=== PATIENT | male | born 1980 | race Caucasian/White ===

== ENCOUNTER 2017-07-05 18:21 | Emergency (ER) | payer BC ==
[~2017-07-05] VITALS: Ht 182.9 cm; Wt 95.8 kg
[~2017-07-05 18:21] MED LIST: ADVIN25050; ALBUAER2 INH; OXYC1TAB3 PO
[2017-07-05 18:29] VITALS: TEMP 36.8; Ht 182.9 cm; Wt 95.8 kg
--- NOTE | 2017-07-05 20:06 | DIAGNOSTIC IMAGING REPORT ---
LEFT ANKLE MIN 3 VIEWS ROUTINE CLINICAL HISTORY: fall; L medial ankle pain trauma. Pain. COMPARISON: None. DISCUSSION: The bones and joint spaces appear intact. There is no evidence of fracture, dislocation or bony disease. There is no evidence for soft tissue swelling. IMPRESSION: Negative study. The above report was generated using voice recognition software. It may contain grammatical, syntax or spelling errors. Electronically signed by: Sravan Nagel M.D. 07/05/2017 8:05 PM Dictated Date/Time: 07/05/2017 8:05 PM
--- NOTE | 2017-07-05 20:07 | DIAGNOSTIC IMAGING REPORT ---
LEFT KNEE 3 VIEWS CLINICAL HISTORY: fall; L medial knee pain trauma. Pain. COMPARISON: None. DISCUSSION: The bones and joint spaces appear intact. There is no evidence of fracture, dislocation or bony disease. There is no evidence for soft tissue swelling. IMPRESSION: Negative study. The above report was generated using voice recognition software. It may contain grammatical, syntax or spelling errors. Electronically signed by: Sravan Nagel M.D. 07/05/2017 8:06 PM Dictated Date/Time: 07/05/2017 8:05 PM
--- NOTE | 2017-07-05 20:08 | DIAGNOSTIC IMAGING REPORT ---
LEFT RIBS UNILATERAL WITH PA CHEST CLINICAL HISTORY: fall; L lateral rib pain trauma COMPARISON STUDY: None FINDINGS: Negative chest. Negative left ribs. IMPRESSION: Negative study The above report was generated using voice recognition software. It may contain grammatical, syntax or spelling errors. Electronically signed by: Sravan Nagel M.D. 07/05/2017 8:07 PM Dictated Date/Time: 07/05/2017 8:06 PM
[2017-07-05] MEDS ORDERED: NORCO 5/325MG HOME PACK PO ONE (20:30)
[2017-07-05 20:46] VITALS: BP 143/84; PULSE 76; O2SAT 98
--- NOTE | 2017-07-06 01:23 | EMERGENCY ROOM VISIT NOTE ---
ED Visit Note First contact with patient: 18:46 Chief Complaint: Fall. History of Present Illness: Mr. Abad is a 37-year-old white male who ambulates into the ED accompanied by his with complaints of left sided rib pain, left anterior knee pain and left ankle pain. Patient reports yesterday morning approximately 28 hours ago he was hiking and slipped and fell and slid 6 feet down a hill in the prone position leaning with his head/face. He reports before the fall there was no lightheadedness or dizziness, the time of the fall he did not strike his head, at the end of the fall he did not have a loss of consciousness and since the fall he reports he is not having any signs of head injury. He goes on to report during the fall he believes he struck his left ribs and knee on a rock and somehow twisted his left ankle. Since the fall he reports he has been having gradually increasing pain and has noted swelling of the anterior left knee and medial left ankle. Currently he is complaining of sharp left-sided chest pain in the areas of the anterior lateral aspect of ribs 5 and 6. He rates his discomfort 6/10. His pain worsens with palpation, deep inspiration and abduction and extension of the shoulder. He has not identified any alleviating factors related to the pain. He reports he has taken ibuprofen for pain without relief of his discomfort. Additionally he is complaining of anterior left knee pain over the patella and over the medial joint line. He reports the patellar pain is much more intense than the joint line pain. He describes this pain as a sharp sensation. He rates his discomfort 6/10. His pain is nonradiating. His pain worsens with palpation of the joint line and patella. Additionally he notes increasing pain with ambulation. Lastly he complains of medial left ankle pain over the ligamentous structures just inferior to the medial malleolus. He rates this discomfort 6/10. His pain worsens with inversion and palpation. Additionally pain increases with ambulation. His pain is nonradiating. He denies any back pain, shortness of breath, wheezing, difficulty breathing, abdominal pain, nausea, vomiting, diarrhea, constipation, rectal bleeding, black /tarry stools, urinary symptoms, hematuria, bowel and bladder dysfunction, lower extremity weakness/numbness/tingling. Review of Systems: As noted above in history of present illness. 8 body systems were reviewed and found to be negative as noted above. Past Medical History: Asthma, bronchitis, pneumonia, status post right hand surgery, wisdom teeth extraction and lithotripsy. Current Medications: Advair, albuterol. Allergies to Medications: Codeine, red dye, cefazolin. Social History: Patient is currently employed; he feels safe in his home environment; he denies tobacco use and admits to alcohol use. Physical Examination: Vital Signs: Date Time Temp Pulse Resp B/P (MAP) Pulse Ox O2 Delivery O2 Flow Rate FiO2 07/05/17 20:46 76 18 143/84 98 07/05/17 18:29 36.8 72 18 139/94 99 Room Air GENERAL: 37-year-old male in mild to moderate distress due to pain, nontoxic- appearing, afebrile and hemodynamically stable. NEUROLOGICAL: Awake, alert and oriented to person, place and time. Answering questions appropriately and following commands. Limped gait. Good hand eye coordination. No focal motor or sensory deficits. SKIN: Warm, dry and pink. Multiple soft tissue abrasions with prominence over the anterior aspect of the left lower leg including the thigh, knee and lower leg. All these wounds are clean dry and intact without signs of infection. BACK: No tenderness over the bony spine. No CVA tenderness. THORAX: Lungs sounds are clear to auscultation and equal bilaterally with symmetrical chest wall. No wheezing, rales or rhonchi. Mild tenderness over the anterior lateral aspects of read 5 and 6 without bony deformity, bony crepitus or subcutaneous air. HEART: Regular rate and rhythm. No gallops, rubs or murmurs are appreciated. ABDOMEN: Flat, soft and nontender. Positive bowel sounds in all quadrants. No guarding, rigidity or organomegaly. LEFT LOWER EXTREMITY: No gross bony deformity. No shortening or malrotation. No tenderness over the hip, foot or toes. Mild tenderness over the anterior and medial aspect of the knee. I do not appreciate any bony deformity or crepitus. There is no swelling and only mild joint line tenderness over the medial aspect of the knee. Over the patella there is moderate tenderness and early contusion as well as superficial abrasions over the anterior patella. Was not able to appreciate any ligamentous laxity at the level of the knee. Ki's test was negative. Decreased range of motion of the knee due to swelling to only about 90 of flexion and he was able to reach full extension and hyperextension. Patient also has tenderness over the ligamentous structures inferior to the medial malleolus with mild swelling. I do not appreciate any bony deformity or crepitus. No laxity of the ligamentous tissues. Full range of motion in plantar flexion and dorsiflexion and inversion and eversion of the ankle and flexion and extension of all toes. Throughout the foot the skin was warm and pink and capillary refill is brisk. He was able to distinguish light sensations through all dermatomes. ED Course: Patient is assessed as noted above. Patient's medication list was reviewed. Left Ankle X-Rays: Were read by myself and the radiologist and showing no acute fractures or dislocations. Left Knee X-Rays: Were read by myself and the radiologist showing no acute fractures or dislocations. No joint effusion. PA Chest and Left-Sided Rib Series: Were read by myself and shows no acute infiltrates, effusions or pneumothorax. Normal heart silhouette and bony anatomy. Patient was offered pain medication and refused. Patient is given ice for ankle pain and swelling. Patient's knee was wrapped in an Samuel bandage for support and he was placed in a gel splint for his ankle pain and swelling. He did report he had crutches at home for use. Patient was educated about today's findings and instructed on his treatment plan ; he verbalized understanding and agreement with this plan. Clinical Impression: Left rib pain. Left knee contusion. Left ankle sprain. Status post fall. Disposition: Patient discharged home in stable condition accompanied by his ; prior to departure he was reassessed and subjectively reported he was feeling slightly better. Plan: Comfort measures including rest, ice, splint, Samuel bandage and nonweightbearing crutches use were discussed with the patient. Additionally patient was placed on a sliding pain medication scale of ibuprofen , acetaminophen and [place]; his name was checked and is [place] [facility] database and no red flags were noted. Additionally he was educated on proper precautions for narcotics use. Wound care and signs of infection were discussed with the patient. Patient was encouraged to follow-up with primary care provider for any signs of infection of the soft tissue injuries. Patient was encouraged to follow-up with orthopedics for his ankle and knee pain. A she was encouraged return to the ED for signs of infection, worsening knee/ ankle pain, worsening rib pain, shortness of breath, coughing up blood or any new/concerning symptoms.
== END 2017-07-05 20:47 | disposition hospice, home (50) ==
LOC: C.EDB 18:22 → C.EDD 20:47
DX: R07.81 Pleurodynia (principal); S80.02XA Contusion of left knee, initial encounter; S93.402A Sprain of unspecified ligament of left ankle, initial encounter; W17.81XA Fall down embankment (hill), initial encounter; J45.909 Unspecified asthma, uncomplicated; Z79.899 Other long term (current) drug therapy; Z88.5 Allergy status to narcotic agent; Z88.8 Allergy status to other drugs, medicaments and biological substances; Z91.09 Other allergy status, other than to drugs and biological substances